=== PATIENT | male | born 1955 | race Caucasian/White ===

== ENCOUNTER → 2019-06-05 | Outpatient (CLI) | payer OTHER ==
[~2019-06-05] VITALS: Ht 175.3 cm; Wt 99.8 kg
[~2019-06-05] MED LIST: ACETAMINOPHEN650 M5 PO; AMOXICILLIN/POTASSIU PO; DULERA 100 MCG/13 GM INH; FELDENE20 MG PO; FENOFIBRATE67 MG PO; FLEXERIL PO; MEVACOR 20 MG T20 MG PO; MOBIC15 MG PO; NAPROSYN500 MG PO; POTASSIUM CHLO10 ME1 PO; PREDNISONE 10 M10 MG PO; PRILOSEC 20 MG20 MG PO; PROAIR HFA8.5 GM INH; SPIRIVA INH
[2019-06-05 09:48] VITALS: BP 117/66
--- NOTE | 2019-06-05 10:09 | NUR ---
Pain Clinic Assessment: 1. History of Osteoarthritis: History of Rheumatoid Arthritis: 2. Height: 5 ft. 9 in. 175.3 cm. Weight: 220.0 lb. oz. 99.792 kg. Patient's BMI: 32.5 3. Vital Signs: BP: 117/66 Pulse: 60 Resp: 16 Temp: 02 Sat: 98 ECG Mon: 4. Pain Intensity: 6 5. Fall Risk: Dizziness: N Needs help standing or walking: N Fallen in the last 3 months: N Fall risk comments: 6. Patient on Blood Thinner: 7. History of Hypertension: N 8. Opioid Therapy greater than 6 weeks: Y Opiate Contract Signed: 9. Risk Assessment Tool Provided: 10. Functional Assessment Tool: 11. Recreational Drug Use: Never Drug Type: Tobacco Use: Never Smoker Tobacco Type: Amount or Packs/day: How Many Years: Alcohol Use: No Frequency: Quant:
--- NOTE | 2019-06-18 07:57 | HPC ---
[facility] [address] [place] [address] PAIN MANAGEMENT CONSULTATION Name: SNEHA CIFUENTESIN Room #: REG CARLOS Becky#: [id number] Admission: 06/05/19 Attend Phys: Ryan Frederick DO Discharge: Date of : 55 Report #: [id number] THIS REPORT FOR: //name// CC: Dr. Ab Sousa FAM physician/PCP FAM unknown Ryan Frederick DATE OF SERVICE: 06/05/2019 REFERRING PHYSICIAN: Dr. Ab Sousa CHIEF COMPLAINT: Low back pain. HISTORY OF PRESENT ILLNESS: As you know, the patient is a pleasant 64-year-old male referred to our service by his neurosurgeon, Dr. Ab Sousa to undergo left L4-L5 and L5-S1 intra-articular facet injections to determine whether or not his symptoms would be amenable to such a procedure. The patient has sought a consultation with Dr. Sousa from a neurosurgical standpoint and it was determined that the patient may be suffering more from facet arthropathy pain. Given the findings on physical exam and the history, he gave at that initial visit. He was subsequently referred to our clinic to trial a left L4-L5 and L5-S1 intra-articular facet injections to determine if his symptoms would improve. The patient indicates pain has been present for about 2 years. The patient reports today pain is steady and constant, describes the pain as cramping, pulling, throbbing, pounding, sharp and stabbing, places current pain score 6/10, daily average of 5-6/10, worst pain has been is 9/10. The patient states that lifting exacerbates his pain as does lying down on his back. He notes improvement in symptoms, when lying on his side in a lateral decubitus position. He has been referred to our service by his neurosurgeon to trial a left L4-L5, L5-S1 intra-articular facet injection in hopes of improving pain. PAST MEDICAL HISTORY: 1. Asthma. 2. Hypertension. 3. Gastroesophageal reflux disease. 4. Degenerative joint disease. 5. Osteoarthritis. 6. Chronic axial back pain. PAST SURGICAL HISTORY: Appendectomy. SOCIAL HISTORY: The patient denies tobacco, alcohol, IV or illicit drug use. He was working for his landlord. He has been out of work for about 4 years. He is not receiving workmen's compensation or is trying to obtain disability [address] [address] PAIN MANAGEMENT CONSULTATION Name: VANEQUE Room #: REG CARLOS Pena#: [id number] Admission: 06/05/19 Attend Phys: Ryan Frederick DO Discharge: Date of : 55 Report #: [id number] benefits. He is not in litigation in regards to pain. He is unaccompanied today. REVIEW OF SYSTEMS: Positive for headaches, wearing corrective eyewear, hearing loss with tinnitus, shortness of breath with walking or lying flat, asthma, wheezing, chronic left low back pain. All other review of systems negative per 12-point review of systems, and those listed in history of present illness. Pain impact score 35/70 indicating moderate interference of daily activities secondary to pain. ALLERGIES: No reported drug allergies. CURRENT MEDICATIONS: Cyclobenzaprine 10 mg p.o. q.a.m., albuterol 2 puffs q. 4 hours p.r.n., tiotropium inhaled once a day, meloxicam 15 mg once a day. IMAGING: MRI lumbar spine obtained on 12/12/2018 shows anterolisthesis of L5 on S1 with bilateral spondylosis deficits measuring 8 mm consistent with a grade 2 spondylolisthesis, severe neural foraminal impingement on the right. Central canal is narrowed to 4 mm. There is broad-based posterior protrusion, moderate posterior degenerative changes at L4-L5. This reduces the canal to 7 mm. Degenerative changes noted throughout the lumbar spine. PQRS: The patient has known arthritic changes of the lumbar spine. No rheumatoid arthritis. He is placing pain intensity at 6/10. He is not a fall risk, has not had a fall in last 3 months. He is not on blood thinners. He is not treated for hypertension. He has been on opioids in the past, but has a low to moderate opioid addiction potential based on our assessment tool. Pain impact score at 35/70, moderate interference of daily activities secondary to pain. PHYSICAL EXAMINATION: VITAL SIGNS: Blood pressure 117/66, pulse 60, respiratory rate 16 and unlabored. The patient is 98% on room air. Height 5 feet 9 inches tall, weight 220 pounds, BMI calculated 32.5. GENERAL: Well-developed, well-nourished, well-hydrated exogenously obese 64-year-old male, he appears stated age, placing current pain score at 5-6/10. HEENT: Normocephalic, atraumatic. Pupils equal, round, reactive to light. Extraocular muscles are intact. LUNGS: Clear, no wheeze, rhonchi or rales. CARDIOVASCULAR: Regular. No appreciable gallop, no rub. ABDOMEN: Soft, nontender, nondistended, normal active bowel sounds. EXTREMITIES: Show no clubbing, no cyanosis, and no edema. MUSCULOSKELETAL: Lower extremity strength is symmetrical 5/5, intact to light touch from L1 through S2 dermatomes. Seated straight leg raising is negative. Supine straight leg raising is mildly positive on the right. Jose's test is negative. Modified Gaenslen's positive for axial low back pain. Ankle clonus [facility] [address] [place] [address] PAIN MANAGEMENT CONSULTATION Name: QUE CIFUENTES Room #: REG CARLOS CabralClarissa#: [id number] Admission: 06/05/19 Attend Phys: Ryan Frederick DO Discharge: Date of : 55 Report #: [id number] is negative. Babinski is negative. ASSESSMENT: 1. Lumbosacral spondylosis without radiculopathy. 2. Facet arthropathy of the lumbar spine. 3. Chronic intractable pain. PLAN: 1. The patient has been referred to our service by his neurosurgeon, Dr. Ab Sousa to trial intra-articular facet injections on the left side to determine if his symptoms would improve with such procedures. It is determined that the patient's main pain generator appears to be the facet joints at L4-L5 and to a lesser degree the facet joints at the L5-S1 level. To further evaluate and treat, the patient has been referred to our clinic to trial intra-articular facet injections. If these are successful, but his pain does continue to be problematic, then possibly radiofrequency lesioning of the medial branch nerves that go to these joints. The patient was advised risks and benefits of the left L4-L5, L5-S1 intra-articular facet injections. These risks include but are not necessarily limited to bleeding, bruising, infection, worsening pain, no relief of pain, also risk of temporary or permanent muscle weakness, temporary or permanent nerve damage, possible paralysis, post-dural puncture headache and . The patient states understood and wished to proceed. 2. No medication changes made at today's visit. The patient will continue current medical therapy as previously prescribed. 3. We will see the patient back in followup visit on an as needed basis for possible next in the series of intra-articular facet injections and discuss treatment options if symptoms do recur. 4. We wish to thank Dr. Ab Sousa for the opportunity to see the patient in consultation. We are hopeful the patient will see good and prolonged benefit with the intra-articular facet injections requested today. Again, we wish to thank you for the opportunity to see the patient in consultation. PROCEDURE NOTE DESCRIPTION OF PROCEDURE: Left L4-L5, L5-S1 intra-articular facet injections under fluoroscopic guidance. Lumbar facet zygapophyseal joint injection. This is the first procedure of the first series that the patient is undergoing. After obtaining written consent, the patient was taken back to the fluoroscopy suite and placed in a prone position with a pillow under the abdomen to decrease the lumbar lordosis and to facilitate needle entry into the facet joints. The [address] [address] PAIN MANAGEMENT CONSULTATION Name: QUE CIFUENTES Room #: REG CARLOS Pena#: [id number] Admission: 06/05/19 Attend Phys: Ryan Frederick DO Discharge: Date of : 55 Report #: [id number] skin overlying the lumbosacral area was prepped and draped in an aseptic fashion. AP and lateral fluoroscopic imaging was obtained. Optimal position of the fluoroscope occurred when the joint line was first visualized. The facet joints were identified radiographically directed adjacent to the superior articular process of the caudad vertebrae. The skin overlying the target site(s) of injection was anesthetized using 3 mL of 1% lidocaine. A ?22-gauge 3-1/2 inch spinal needle with a bend tip was advanced towards the L4-L5 and L5-S1 facet joint(s) on the left side under fluoroscopic guidance. The firm posterior capsule had its characteristic feel and the needle was advanced a few additional millimeters beyond the joint capsule into the joint space, but not into the articular cartilage. After the joint space was entered and aspiration was negative for heme or CSF, 0.2 mL of Omnipaque was injected demonstrating a characteristic facet arthrogram. After negative aspiration for heme or CSF, 1.5 mL solution containing 1 mL, 40 mg per mL, 40 mg total triamcinolone and 0.5 mL of bupivacaine 0.5% was slowly injected at each of 2 facet(s). The needle(s) was then removed. There were no apparent complications. The patient tolerated the procedure well and was carefully escorted to the recovery room in stable condition. The VAS was 5-6/10 before the procedure and 2/10 after the procedure. After meeting discharge criteria, the patient was discharged home. <ELECTRONICALLY SIGNED> By: Ryan Frederick DO 06/18/19 [id number] Ryan Frederick DO /nt
== END | disposition home or self-care (01) ==
LOC: PAIN 06:59
DX: M54.5 Low back pain (principal); M47.817 Spondylosis without myelopathy or radiculopathy, lumbosacral region; M47.26 Other spondylosis with radiculopathy, lumbar region; G89.29 Other chronic pain; I10 Essential (primary) hypertension; M19.90 Unspecified osteoarthritis, unspecified site; J45.909 Unspecified asthma, uncomplicated; K21.9 Gastro-esophageal reflux disease without esophagitis; Z90.49 Acquired absence of other specified parts of digestive tract; Z98.890 Other specified postprocedural states; Z79.899 Other long term (current) drug therapy